=== PATIENT | male | born 1990 | race Caucasian/White ===

== ENCOUNTER 2018-04-15 03:10 | Emergency (ER) | payer BC ==
[~2018-04-15] VITALS: Ht 182.9 cm; Wt 53.7 kg
[2018-04-15 03:45] LABS: HEMOGLOBIN 14.7 G/DL (12.5-16.6); MCH 32.4 PG (29.0-34.0); MCV 92.5 FL (86-99); PLATELET COUNT 289 K/uL (156-360); RBC DIS.WIDTH-CV 13.2 % (11.8-14.6); RBC DIS.WIDTH-SD 44.8 % (39-53); RED BLOOD COUNT 4.54 M/uL (4.00-5.50); WHITE BLOOD COUNT 13.1 K/uL (4.1-10.2)
[2018-04-15 04:08] LABS: CHLORIDE 106 MEQ/L (99-109); CREATININE 1.5 MG/DL (0.6-1.3); GFR ESTIMATE (CALCULATED) > 59 mL/min/ (58.99-99999); GLUCOSE 86 mg/dL (70-99); POTASSIUM 3.4 MEQ/L (3.7-5.4); SERUM ETHYL ALCOHOL 265 mg/dL; SODIUM 139 MEQ/L (136-147); UREA NITROGEN (BUN) 10 mg/dL (9-23)
[2018-04-15 04:14] LABS: ACETAMINOPHEN (TYLENOL) < 10 MCG/ML (10-30); SALICYLATE < 3.0 MG/DL (15-30)
[2018-04-15 11:49] LABS: APPEARANCE CLEAR ((CLEAR)); BILIRUBIN NEGATIVE; BLOOD NEGATIVE; COLOR YELLOW ((YELLOW)); GLUCOSE (STRIP) NEGATIVE; KETONES 5; LEUKOCYTES NEGATIVE; NITRITE NEGATIVE; PROTEIN (STRIP) NEGATIVE; SPECIFIC GRAVITY 1.024 (1.000-1.030)
[2018-04-15 11:57] LABS: COCAINE PRESUMPTIVE POSITIVE (150 ng/mL); PHENCYCLIDINE NEGATIVE (25 ng/mL); THC CANNABINOIDS PRESUMPTIVE POSITIVE (50 ng/mL)
[2018-04-15 11:58] LABS: AMPHETAMINE NEGATIVE (500 ng/mL); BARBITURATES NEGATIVE (200 ng/mL); BENZODIAZEPINES NEGATIVE (150 ng/mL); BUPRENORPHINE NEGATIVE (10 ng/mL); METHADONE NEGATIVE (200 ng/mL); METHAMPHETAMINE NEGATIVE (500 ng/mL); OPIATES (MORPHINE) NEGATIVE (100 ng/mL); OXYCODONE NEGATIVE (100 ng/mL); PROPOXYPHENE NEGATIVE (300 ng/mL); TRICYCLIC ANTIDEPRESSANTS NEGATIVE (300 ng/mL)
[2018-04-15 12:04] VITALS: BP 124/61
== END 2018-04-15 12:00 | disposition home or self-care (01) ==
LOC: EME 03:10
PROVIDERS: Physician Assistant
PROC: 0HQEXZZ Repair Left Lower Arm Skin, External Approach (ICD-10-PCS; principal; 2018-04-15)
DX: S51.812A Laceration without foreign body of left forearm, initial encounter (principal); X78.9XXA Intentional self-harm by unspecified sharp object, initial encounter; F10.129 Alcohol abuse with intoxication, unspecified; F17.200 Nicotine dependence, unspecified, uncomplicated; Y90.8 Blood alcohol level of 240 mg/100 ml or more; F32.9 Major depressive disorder, single episode, unspecified; F41.9 Anxiety disorder, unspecified
CPT/HCPCS: 80048; 81003; 84999; 85027; 90839; 99281; 99285; G0480; J1630